=== PATIENT | female | born 1990 | race Caucasian/White ===

== ENCOUNTER 2019-10-19 09:11 | Emergency (ER) | payer SELFPAY ==
[~2019-10-19] VITALS: Ht 172.7 cm; Wt 61.2 kg
[~2019-10-19 09:11] MED LIST: AMPH20CA3 PO
--- NOTE | 2019-10-19 09:20 | NUR ---
patient came in to the er c/o generalized rash noticed this morning, s/p fluid drained on the right knee yesterday, itching, no sob. on room air, breeathing evenly and unlabored. kept comfortable, will continue to monitor accordingly.
[2019-10-19] MEDS ORDERED: hydrOXYzine 10 MG TABLET ONE (09:40)
--- NOTE | 2019-10-19 09:47 | NUR ---
Patient discharged to home in stable condition. Written and verbal after care instructions given. Patient verbalizes understanding of instruction.
[2019-10-19 09:48] VITALS: BP 118/81
[2019-10-19] MEDS ORDERED: hydrOXYzine 10 MG TABLET PO ONE (10:00)
== END 2019-10-19 09:48 | disposition home or self-care (01) ==
LOC: ER 09:12
DX: L23.9 Allergic contact dermatitis, unspecified cause (principal); M71.9 Bursopathy, unspecified; Z79.899 Other long term (current) drug therapy
CPT/HCPCS: 99283; Q0177